=== PATIENT | female | born 1965 | race Caucasian/White ===

== ENCOUNTER 2020-06-19 19:25 | Emergency (ER) | payer OTHER ==
[~2020-06-19] VITALS: Ht 165.1 cm; Wt 59.0 kg
[2020-06-19] MEDS ORDERED: HYDROCODONE/ACETAMINOPHEN 5/325MG TABLET PO ONE (20:30)
[2020-06-20 00:39] VITALS: BP 125/80
== END 2020-06-20 00:48 | disposition home or self-care (01) ==
LOC: ER 19:25
DX: S82.891A Other fracture of right lower leg, initial encounter for closed fracture (principal); V49.49XA Driver injured in collision with other motor vehicles in traffic accident, initial encounter; Y93.89 Activity, other specified; Y92.89 Other specified places as the place of occurrence of the external cause; Y99.8 Other external cause status
CPT/HCPCS: 73110; 73130; 73610; 93005; 99284